=== PATIENT | female | born 1970 | race American Indian/Alaskan Native ===

== ENCOUNTER 2018-12-01 20:55 | Emergency (ER) | payer OTHER ==
[2018-12-01 21:14] VITALS: BP 124/84
--- NOTE | 2018-12-01 21:19 | Emergency Department Report ---
Chief Complaint: Skin Rash Stated Complaint: RASH,SWOLLEN FACE Time Seen by Provider: 12/01/18 21:12 - HPI History of Present Illness: This is a 48 y.o. F. that presents to the ER with rash to anterior torso and BUE X 2 days. Patient states rash started on BUE and she noticed itching to right anterior torso then bumps appeared. She don't recall being bitten by insect. She denies sore throat, tonsilar swelling, drooling, difficulty swallowing, or fever. - ROS Review of Systems: Skin: rash to BUE and anterior torso - Exam Vital Signs: Vital Signs 12/01/18 20:59 Temperature 98.0 F Pulse Rate 77 Respiratory 19 Rate Blood Pressure 124/84 O2 Sat by Pulse 98 Oximetry Physical Exam: GENERAL: The patient is well looking, in no acute distress. CHEST: Air entry is adequate bilaterally with no rhonchi, and crackles. HEART: Sounds 1 and 2 are heard and are normal. Regular rate and rhythm, no tachycardic, murmurs, gallops, or rubs. ABDOMEN: Soft and nontender. Bowel sounds are present and normal. There is no hepatosplenomegaly. SKIN: maculopapular rash to BUE and anterior torso, blanchable. No surrounding cellulitis and nontender EXTREMITIES: Without edema, cyanosis, or clubbing. MSE screening note: MSE screening note: Focused history and physical exam performed. Due to findings the following was ordered: ED Medical Decision Making - Medical Decision Making Patient was examined by me. Vitals are normal and patient is in no acute distr ess. No signs of angioedema of tongue or difficulty swallowing. Patient will be treated for contact dermatitis. Start zyrtec and medrol dose pack. Plan discussed with parent to discharge home and treat outpatient. She agrees with ER plan. Patient discharged home in stable condition. Follow up with PCP in 2-3 days. ED Disposition for MSE Clinical Impression: Pruritic rash Contact dermatitis Qualifiers: Contact dermatitis type: irritant Contact dermatitis trigger: unspecified trigger Qualified Code(s): L24.9 - Irritant contact dermatitis, unspecified cause Disposition: - TO HOME OR SELFCARE Is pt being admited?: No Does the pt Need Aspirin: No Condition: Stable Instructions: Contact Dermatitis (ED) Additional Instructions: Complete steroids as prescribed. Take zyrtec as prescribed daily to control itching. Return to the ER if symptoms are worsening. Prescriptions: methylPREDNISolone [Medrol 4MG DOSEPAK (21 tabs)] 4 mg PO DAILY #1 tab.ds.pk Cetirizine HCl [Zyrtec 10mg tab] 10 mg PO DAILY #30 tablet Referrals: [facility] [Outside] - 3-5 Days [facility] [Outside] - 3-5 Days [facility] [Outside] - 3-5 Days Time of Disposition: 21:42
== END 2018-12-01 22:10 | disposition home or self-care (01) ==
LOC: ED 20:55
DX: L24.9 Irritant contact dermatitis, unspecified cause (principal)
CPT/HCPCS: 99281

== ENCOUNTER 2018-12-13 05:06 | Emergency (ER) | payer SELFPAY ==
[2018-12-13] MEDS ORDERED: MORPHINE IV ONE (05:19)
[2018-12-13] MEDS ORDERED: ZOFRAN IV ONE (05:19)
[2018-12-13] MEDS ORDERED: ZOFRAN ONE (05:22)
[2018-12-13] MEDS ORDERED: MORPHINE ONE (05:23)
[2018-12-13] MEDS ORDERED: BOOSTRIX IM ONE (06:07)
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
[2018-12-13] MEDS ORDERED: THERMAZENE 50 GRAM TP ONE (06:21)
[2018-12-13] MEDS ORDERED: PERCOCET 5/325 PO ONE (06:21)
[2018-12-13 07:04] VITALS: BP 115/70
== END 2018-12-13 07:12 | disposition home or self-care (01) ==
LOC: ED 05:06
DX: T23.109A Burn of first degree of unspecified hand, unspecified site, initial encounter (principal); T23.26 Burn of second degree of back of hand; X12.XXXA Contact with other hot fluids, initial encounter; Y93.89 Activity, other specified; Y92.009 Unspecified place in unspecified non-institutional (private) residence as the place of occurrence of the external cause; Y99.8 Other external cause status
CPT/HCPCS: 90715; J2270; J2405; 90471; 96374; 96375

== ENCOUNTER 2018-12-24 15:47 | Emergency (ER) | payer OTHER ==
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
[2018-12-24 19:47] VITALS: BP 126/74
== END 2018-12-24 19:45 | disposition home or self-care (01) ==
LOC: ED 15:47
DX: M54.2 Cervicalgia (principal); Z86.73 Personal history of transient ischemic attack (TIA), and cerebral infarction without residual deficits; Z98.890 Other specified postprocedural states; Z79.899 Other long term (current) drug therapy; V40.5XXA Car driver injured in collision with pedestrian or animal in traffic accident, initial encounter; Y93.89 Activity, other specified; Y92.488 Other paved roadways as the place of occurrence of the external cause; Y99.8 Other external cause status
CPT/HCPCS: 72040; 99283

== ENCOUNTER 2019-02-17 13:02 | Emergency (ER) | payer SELFPAY ==
[2019-02-17 13:25] VITALS: BP 126/69
--- NOTE | 2019-02-17 13:25 | Event Note ---
ED Screening Note Date of service: 02/17/19 Time: 13:22 ED Screening Note: This is a 48 y.o. F. that presents to the ER with sore throat and congestion for 3 days. Patient states she visited family in [place] and returned home sick. She is taking Tylenol PM with minimal improvement of symptoms. This initial assessment/diagnostic orders/clinical plan/treatment(s) is/are subject to change based on patients health status, clinical progression and re- assessment by fellow clinical providers in the ED. Further treatment and workup at subsequent clinical providers discretion. Patient/guardian urged not to elope from the ED as their condition may be serious if not clinically assessed and managed. Initial orders include:
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
== END 2019-02-17 15:00 | disposition home or self-care (01) ==
LOC: ED 13:02
DX: J06.9 Acute upper respiratory infection, unspecified (principal)
CPT/HCPCS: 99282

== ENCOUNTER 2019-05-17 12:48 | Observation (INO) | payer OTHER ==
--- NOTE | 2019-05-17 12:56 | Event Note ---
ED Screening Note Date of service: 05/17/19 Time: 12:54 ED Screening Note: 49 y/o female comes to ER for having numbness and tingling to her left arm and fingers. Patient reports this has started 15 mins [employer]. Patient has a history of TIA and that a full stroke in 2017. This initial assessment/diagnostic orders/clinical plan/treatment(s) is/are subject to change based on patients health status, clinical progression and re- assessment by fellow clinical providers in the ED. Further treatment and workup at subsequent clinical providers discretion. Patient/guardian urged not to elope from the ED as their condition may be serious if not clinically assessed and managed. Initial orders include:
--- NOTE | 2019-05-17 13:02 | Consultation ---
History of Present Illness Consult date: 05/17/19 History of present illness: [facility] Consult Services Date of Service: 05/17/2019 12:57:15 Impression: RO Acute Ischemic Stroke Numbess/Parasthesias - r/o cardiac causes Comments: 1. Cardioembolic stroke 2. Small vessel disease/lacune 3. Thromboembolic, oxplte-ml-ifmuun mechanism 4. Hypercoagulable state-related infarct 5. Thrombotic mechanism, large artery disease 6. Transient ischemic attack Metrics: Last Known Well: 05/17/2019 12:30:00 [employer] Notification Time: 05/17/2019 12:56:33 Arrival Time: 05/17/2019 12:48:00 Stamp Time: 05/17/2019 12:57:15 Time First Login Attempt: 05/17/2019 13:01:15 Video Start Time: 05/17/2019 13:01:15 Symptoms: left arm face/arm parasthesia NIHSS Start Assessment Time: 05/17/2019 13:05:24 Patient is not a candidate for tPA. Patient was not deemed candidate for tPA thrombolytics because of patient declined IV TPA. Video End Time: 05/17/2019 13:18:48 CT head was reviewed. Advanced imaging was not obtained as the presentation was not suggestive of Large Vessel Occlusive Disease. ER Physician notified of the decision on thrombolytics management on 05/17/2019 13:17:00 Our recommendations are outlined below. Recommendations: Activate Stroke Protocol Admission/Order Set Stroke/Telemetry Floor Neuro Checks Bedside Swallow Eval DVT Prophylaxis IV Fluids, Normal Saline Head of Bed Below 30 Degrees Euglycemia and Avoid Hyperthermia (PRN Acetaminophen) ASA if no contraindication Recommended Scan: MRI Head Without Contrast MRA Head Without Contrast MRA Neck with and Without Contrast Lipid Panel to Be Obtained, if Not Done in the Last Three Months Therapies: Physical Therapy, Occupational Therapy, Speech Therapy Assessment When Applicable Dysphaghia Screen: Swallow Evaluation, Bedside NPO Until Swallow Evaluation DVT prophylaxis: Choice of Primary Team Disposition: Follow up with Teleneurology Follow up Sign Out: Discussed with Emergency Department Provider History of Present Illness: Patient is a 49 year old Female. Patient was brought by private transportation with symptoms of left arm face/arm parasthesia 49 y/o woman with h/o stroke, breast cancer (just diagnosed a week ago) who presents with left face/arm parasthesias. Emergent telestroke consult requested. CT head reviewed and case discussed with ED staff. Patient has a h/o of left carotid dissection. I discussed the risk, benefits and alternatives IV TPA and the patient declined IV TPA since her symptoms are nondebilitating. CT head was reviewed. Examination: 1A: Level of Consciousness - Alert; keenly responsive + 0 1B: Ask Month and Age - Both Questions Right + 0 1C: Blink Eyes & Squeeze Hands - Performs Both Tasks + 0 2: Test Horizontal Extraocular Movements - Normal + 0 3: Test Visual Covarrubias - No Visual Loss + 0 4: Test Facial Palsy (Use Grimace if Obtunded) - Normal symmetry + 0 5A: Test Left Arm Motor Drift - No Drift for 10 Seconds + 0 5B: Test Right Arm Motor Drift - No Drift for 10 Seconds + 0 6A: Test Left Leg Motor Drift - No Drift for 5 Seconds + 0 6B: Test Right Leg Motor Drift - No Drift for 5 Seconds + 0 7: Test Limb Ataxia (FNF/Heel-Osman) - No Ataxia + 0 8: Test Sensation - Mild-Moderate Loss: Less Sharp/More Dull + 1 9: Test Language/Aphasia - Normal; No aphasia + 0 10: Test Dysarthria - Normal + 0 11: Test Extinction/Inattention - No abnormality + 0 NIHSS Score: 1 Patient was informed the Neurology Consult would happen via TeleHealth consult by way of interactive audio and video telecommunications and consented to receiving care in this manner. Due to the immediate potential for life-threatening deterioration due to unde rlying acute neurologic illness, I spent 18 minutes providing critical care. This time includes time for face to face visit via telemedicine, review of medical records, imaging studies and discussion of findings with providers, the patient and/or family. Dr Tarik Gonzalez [employer] Medications and Allergies Allergies Allergy/AdvReac Type Severity Reaction Status Date / Time No Known Allergies Allergy Verified 02/17/19 13:29 Home Medications Medication Instructions Recorded Confirmed Last Taken Type Ondansetron [Zofran Odt] 4 mg PO Q6H PRN #10 tab.rapdis 12/13/18 Unknown Rx Silver Sulfadiazine [Silvadene] 20 gm TP BID #1 cream..g. 12/13/18 Unknown Rx oxyCODONE /ACETAMINOPHEN [Percocet 1 tab PO Q6HR PRN #12 tablet 12/13/18 Unknown Rx 5/325] Cyclobenzaprine [Flexeril] 10 mg PO QHS PRN #10 tablet 12/24/18 Unknown Rx Naproxen [EC-Naproxen] 500 mg PO BID PRN #20 tablet.dr 12/24/18 Unknown Rx Benzonatate [Tessalon Perles] 100 mg PO Q8HR PRN #30 capsule 02/17/19 Unknown Rx Cetirizine HCl [Zyrtec 10mg tab] 10 mg PO DAILY #30 tablet 02/17/19 Unknown Rx Fluticasone [Flonase] 1 spray NS QDAY #1 bottle 02/17/19 Unknown Rx methylPREDNISolone [Medrol 4MG 4 mg PO DAILY #1 tab.ds.pk 02/17/19 Unknown Rx DOSEPAK (21 tabs)] Physical Examination - Vital Signs Vital Signs: Vital Signs Temp Pulse Resp BP Pulse Ox 98.3 F 68 16 136/83 99 05/17/19 12:56 05/17/19 12:56 05/17/19 12:56 05/17/19 12:56 05/17/19 12:56
--- NOTE | 2019-05-17 13:19 | Cat Scan Report ---
CT head/brain wo con INDICATION: neuro deficits <6hrs or sx present upon awakening. TECHNIQUE: Routine CT head without contrast. All CT scans at this location are performed using CT dos e reduction for ALARA by means of automated exposure control. COMPARISON: None. FINDINGS: BRAIN / INTRACRANIAL CONTENTS: No acute hemorrhage, mass effect, midline shift, or hydrocephalus. No appreciable acute large territorial or lacunar infarct. No chronic infarct or focal atrophy. Normal b rain volume and ventricular/sulcal size for age. ORBITS: No significant abnormality of visualized orbits. SINUSES / MASTOIDS: No significant abnormality of visualized sinuses and mastoid air cells. ADDITIONAL FINDINGS: None. IMPRESSION: 1. No acute intracranial abnormality. Findings discussed with Dr. Castañeda at 12:15 PM central time on 05/17/2019. Signer Name: Kishor Tavarez MD Signed: 05/17/2019 1:15 PM Workstation Name: [id number]
--- NOTE | 2019-05-17 13:30 | Emergency Department Report ---
ED General Adult HPI - General Chief complaint: Neuro Symptoms/Deficit Stated complaint: LEFT ARM TINGLING Time Seen by Provider: 05/17/19 12:54 Source: patient, RN notes reviewed Mode of arrival: Ambulatory Limitations: No Limitations - History of Present Illness Initial comments: The patient is a 49-year-old female. The patient is not known to this provider previously. Her past medical history includes possible carotid dissection, left side, 2017, and reported newly diagnosed breast cancer. Presents to the ER as a possible code stroke. Symptoms include left forearm numbness, starting from the distal left upper extremity fingertips, and then radiating up to the elbow. There is no weakness. Symptoms started between 12:30 PM, and 12:41 PM. Also endorses nontraumatic left-sided facial dysesthesias. Patient also endorses chronic swallowing and chest discomfort. Symptoms constant, do not radiate anywhere, and did not have exacerbating or relieving factors. The patient denies recent travel, surgeries, oral contraceptive use, and denies posterior leg pain and swelling. -: Gradual Location: face, left, upper extremity Consistency: constant Improves with: none Worsens with: none - Related Data Previous Rx's Medication Instructions Recorded Last Taken Type Ondansetron [Zofran Odt] 4 mg PO Q6H PRN #10 tab.rapdis 12/13/18 Unknown Rx Silver Sulfadiazine [Silvadene] 20 gm TP BID #1 cream..g. 12/13/18 Unknown Rx oxyCODONE /ACETAMINOPHEN [Percocet 1 tab PO Q6HR PRN #12 tablet 12/13/18 Unknown Rx 5/325] Cyclobenzaprine [Flexeril] 10 mg PO QHS PRN #10 tablet 12/24/18 Unknown Rx Naproxen [EC-Naproxen] 500 mg PO BID PRN #20 tablet.dr 12/24/18 Unknown Rx Benzonatate [Tessalon Perles] 100 mg PO Q8HR PRN #30 capsule 02/17/19 Unknown Rx Cetirizine HCl [Zyrtec 10mg tab] 10 mg PO DAILY #30 tablet 02/17/19 Unknown Rx Fluticasone [Flonase] 1 spray NS QDAY #1 bottle 02/17/19 Unknown Rx methylPREDNISolone [Medrol 4MG 4 mg PO DAILY #1 tab.ds.pk 02/17/19 Unknown Rx DOSEPAK (21 tabs)] Allergies Allergy/AdvReac Type Severity Reaction Status Date / Time No Known Allergies Allergy Verified 02/17/19 13:29 ED Review of Systems ROS: Stated complaint: LEFT ARM TINGLING Other details as noted in HPI Constitutional: denies: fever Eyes: denies: eye discharge ENT: denies: congestion Respiratory: denies: wheezing Cardiovascular: denies: syncope Gastrointestinal: denies: vomiting Neurological: numbness ED Past Medical Hx - Past Medical History Hx CVA: Yes (2017) - Surgical History Additional Surgical History: tuble - Social History Smoking Status: Never Smoker Substance Use Type: None - Medications Home Medications: Home Medications Medication Instructions Recorded Confirmed Last Taken Type Ondansetron [Zofran Odt] 4 mg PO Q6H PRN #10 tab.rapdis 12/13/18 Unknown Rx Silver Sulfadiazine [Silvadene] 20 gm TP BID #1 cream..g. 12/13/18 Unknown Rx oxyCODONE /ACETAMINOPHEN [Percocet 1 tab PO Q6HR PRN #12 tablet 12/13/18 Unknown Rx 5/325] Cyclobenzaprine [Flexeril] 10 mg PO QHS PRN #10 tablet 12/24/18 Unknown Rx Naproxen [EC-Naproxen] 500 mg PO BID PRN #20 tablet.dr 12/24/18 Unknown Rx Benzonatate [Tessalon Perles] 100 mg PO Q8HR PRN #30 capsule 02/17/19 Unknown Rx Cetirizine HCl [Zyrtec 10mg tab] 10 mg PO DAILY #30 tablet 02/17/19 Unknown Rx Fluticasone [Flonase] 1 spray NS QDAY #1 bottle 02/17/19 Unknown Rx methylPREDNISolone [Medrol 4MG 4 mg PO DAILY #1 tab.ds.pk 02/17/19 Unknown Rx DOSEPAK (21 tabs)] ED Physical Exam - General Limitations: No Limitations General appearance: alert, in no apparent distress - Head Head exam: Present: atraumatic, normocephalic - Eye Eye exam: Present: normal appearance, PERRL, EOMI, other (visual acuity intact to finger counting in color perception at close distance). Absent: nystagmus - ENT ENT exam: Present: normal exam, normal orophraynx, mucous membranes moist, normal external ear exam - Neck Neck exam: Present: normal inspection, full ROM. Absent: tenderness, meningismus - Respiratory Respiratory exam: Present: normal lung sounds bilaterally. Absent: respiratory distress - Cardiovascular Cardiovascular Exam: Present: regular rate, normal rhythm, normal heart sounds. Absent: bradycardia, tachycardia, irregular rhythm, systolic murmur, diastolic murmur, rubs, gallop - GI/Abdominal GI/Abdominal exam: Present: soft. Absent: distended, tenderness, guarding, rebound, rigid, pulsatile mass - Extremities Exam Extremities exam: Present: normal inspection, full ROM, other (2+ pulses noted in the bilateral upper and lower extremities. There is no palpable cord. negative Homans sign. Muscular compartments are soft. The pelvis is stable.). Absent: pedal edema, joint swelling, calf tenderness - Back Exam Back exam: Present: normal inspection, full ROM. Absent: tenderness, CVA tenderness (R), CVA tenderness (L), paraspinal tenderness, vertebral tenderness - Neurological Exam Neurological exam: Present: alert, oriented X3, other (there is no facial droop. The tongue is midline. Extraocular movements are intact bilaterally. There is 5 out of 5 strength in bilateral upper and lower extremities. Sensation is intact to light touch bilateral upper and lower extremities. There is no past- pointing. There is no pronator drift. There is normal [id number]. There is a normal gait.). Absent: motor sensory deficit (sensation is intact to light touch in the bilateral upper and lower extremities. However, patient endorses that left distal forearm feels somewhat different from her right upper extremity.) - Psychiatric Psychiatric exam: Present: anxious - Skin Skin exam: Present: warm, dry, intact, normal color. Absent: rash ED Course Vital Signs 05/17/19 05/17/19 12:56 13:24 Temperature 98.3 F 98.2 F Pulse Rate 68 68 Respiratory 16 14 Rate Blood Pressure 136/83 Blood Pressure 125/82 [Right] O2 Sat by Pulse 99 100 Oximetry - Reevaluation(s) Reevaluation #1: 05/17/19 14:33 Differential diagnosis, including but not limited to: Peripheral neuropathy, TIA, stroke, multiple sclerosis Assessment and plan: 49-year-old female presenting with subjective left upper extremity numbness, elbow distal, subjective dysesthesia and left-sided V2 distribution, no obvious demonstrable motor deficits, declines CPA, which I agree with. Patient specifically indicated she did not want TPA as she is concerned about the risks of bleeding, and . She does not appear to have disabling deficits at this time. She is resting comfortable, and in no acute distress. She was seen in conjunction with consultative stroke neurology, who also made similar recommendations. Hospital physician will be paged to arrange admission. ED Medical Decision Making - Lab Data Result diagrams: 05/17/19 13:17 05/17/19 13:17 Vital Signs 05/17/19 05/17/19 12:56 13:24 Temperature 98.3 F 98.2 F Pulse Rate 68 68 Respiratory 16 14 Rate Blood Pressure 136/83 Blood Pressure 125/82 [Right] O2 Sat by Pulse 99 100 Oximetry Lab Results 05/17/19 05/17/19 05/17/19 Range/Units 13:04 13:17 13:17 WBC 7.6 (4.5-11.0) K/mm3 RBC 4.46 (3.65-5.03) M/mm3 Hgb 14.0 (10.1-14.3) gm/dl Hct 41.2 (30.3-42.9) % MCV 92 (79-97) fl MCH 32 (28-32) pg MCHC 34 (30-34) % RDW 13.3 (13.2-15.2) % Plt Count 275 (140-440) K/mm3 Lymph % (Auto) 31.7 (13.4-35.0) % Beaver % (Auto) 5.5 (0.0-7.3) % Eos % (Auto) 2.1 (0.0-4.3) % Baso % (Auto) 1.0 (0.0-1.8) % Lymph # 2.4 (1.2-5.4) K/mm3 Beaver # 0.4 (0.0-0.8) K/mm3 Eos # 0.2 (0.0-0.4) K/mm3 Baso # 0.1 (0.0-0.1) K/mm3 Seg Neutrophils % 59.7 (40.0-70.0) % Seg Neutrophils # 4.6 (1.8-7.7) K/mm3 PT 12.2 (12.2-14.9) Sec. INR 0.90 (0.87-1.13) APTT 25.8 (24.2-36.6) Sec. Thrombin Time 16.7 (15.1-19.6) Sec. Sodium (137-145) mmol/L Potassium (3.6-5.0) mmol/L Chloride (98-107) mmol/L Carbon Dioxide (22-30) mmol/L Anion Gap mmol/L BUN (7-17) mg/dL Creatinine (0.7-1.2) mg/dL Estimated GFR ml/min BUN/Creatinine Ratio % Glucose (65-100) mg/dL POC Glucose 93 (70-105) Calcium (8.4-10.2) mg/dL Troponin T (0.00-0.029) ng/mL 05/17/19 Range/Units 13:17 WBC (4.5-11.0) K/mm3 RBC (3.65-5.03) M/mm3 Hgb (10.1-14.3) gm/dl Hct (30.3-42.9) % MCV (79-97) fl MCH (28-32) pg MCHC (30-34) % RDW (13.2-15.2) % Plt Count (140-440) K/mm3 Lymph % (Auto) (13.4-35.0) % Beaver % (Auto) (0.0-7.3) % Eos % (Auto) (0.0-4.3) % Baso % (Auto) (0.0-1.8) % Lymph # (1.2-5.4) K/mm3 Beaver # (0.0-0.8) K/mm3 Eos # (0.0-0.4) K/mm3 Baso # (0.0-0.1) K/mm3 Seg Neutrophils % (40.0-70.0) % Seg Neutrophils # (1.8-7.7) K/mm3 PT (12.2-14.9) Sec. INR (0.87-1.13) APTT (24.2-36.6) Sec. Thrombin Time (15.1-19.6) Sec. Sodium 141 (137-145) mmol/L Potassium 4.4 (3.6-5.0) mmol/L Chloride 106.5 (98-107) mmol/L Carbon Dioxide 25 (22-30) mmol/L Anion Gap 14 mmol/L BUN 9 (7-17) mg/dL Creatinine 0.8 (0.7-1.2) mg/dL Estimated GFR > 60 ml/min BUN/Creatinine Ratio 11 % Glucose 93 (65-100) mg/dL POC Glucose (70-105) Calcium 9.2 (8.4-10.2) mg/dL Troponin T < 0.010 (0.00-0.029) ng/mL - EKG Data -: EKG Interpreted by Me EKG shows normal: sinus rhythm Rate: normal - EKG Data When compared to previous EKG there are: previous EKG unavailable 05/17/19 14:33 There is no prior EKG available for comparison. The EKG shows a sinus bradycardia, within normal axis, the QTC is within normal limits, the EKG is unremarkable, it is not consistent with ST elevation myocardial infarction. - Radiology Data Radiology results: pending, report reviewed, image reviewed X-ray the chest is negative for acute disease. Noncontrast CT scan of the brain is negative for acute disease. Critical care attestation.: If time is entered above; I have spent that time in minutes in the direct care of this critically ill patient, excluding procedure time. ED Disposition Clinical Impression: Left arm numbness, Left facial numbness Disposition: OP ADMIT IP TO THIS HOSP Is pt being admited?: Yes Does the pt Need Aspirin: Yes Condition: Stable
[2019-05-17 13:36] LABS: Basophils # (Auto) 0.1 K/mm3 (0.0-0.1); Eosinophils # (Auto) 0.2 K/mm3 (0.0-0.4); Eosinophils % (Auto) 2.1 % (0.0-4.3); Hematocrit 41.2 % (30.3-42.9); Lymphocytes # (Auto) 2.4 K/mm3 (1.2-5.4); Lymphocytes % (Auto) 31.7 % (13.4-35.0); Mean Corpuscular HGB Conc 34 % (30-34); Mean Corpuscular Volume 92 fl (79-97); Monocytes # (Auto) 0.4 K/mm3 (0.0-0.8); Monocytes % (Auto) 5.5 % (0.0-7.3); Platelet Count 275 K/mm3 (140-440); Red Blood Count 4.46 M/mm3 (3.65-5.03); Red Cell Distribution Width 13.3 % (13.2-15.2)
[2019-05-17 13:49] LABS: INR 0.9 (0.87-1.13)
[2019-05-17 13:50] LABS: BUN/Creatinine Ratio 11; Blood Urea Nitrogen 9 mg/dL (7-17); Calcium 9.2 mg/dL (8.4-10.2); Hemolysis Index 11
[2019-05-17 14:06] LABS: Partial Thromboplastin Time 25.8 Sec. (24.2-36.6); Thrombin Time 16.7 Sec. (15.1-19.6)
--- NOTE | 2019-05-17 14:14 | XRay Report ---
CHEST 1 VIEW INDICATION: Chest pain. COMPARISON: None FINDINGS: Support devices: None. Heart: Within normal limits. Lungs/Pleura: No acute air space or interstitial disease. Additional findings: None. IMPRESSION: No acute findings. Signer Name: Pritesh Beck Jr, MD Signed: 05/17/2019 2:09 PM Workstation Name: [id number]
[2019-05-17] MEDS ORDERED: ASPIRIN 81 MG TAB CHEW PO ONE (14:35)
[2019-05-17] MEDS ORDERED: ONDANSETRON 4 MG/2 ML INJ IV PRN (14:56)
[2019-05-17] MEDS ORDERED: MAGNESIUM HYDROXIDE (MOM) ORAL LIQD UDC PO PRN (14:56)
[2019-05-17] MEDS ORDERED: ACETAMINOPHEN 325 MG TAB PO PRN (14:56)
[2019-05-17] MEDS ORDERED: PROMETHAZINE 25 MG RECT SUPP PR PRN (14:56)
[2019-05-17] MEDS ORDERED: METOCLOPRAMIDE 10 MG TAB PO PRN (14:56)
--- NOTE | 2019-05-17 14:56 | History and Physical Report ---
History of Present Illness Chief complaint: I felt weak History of present illness: 49 YO Female with CVA, Traumatic carotid dissection, BrCa presents to ED for evaluation. Pt states that she experienced acute onset Left arm numbness and weakness, as well as Left sided facial droop and weakness that began around 1230hrs. Pt transported to [facility] via private vehicle. Pt seen and evaluated in ED and a Code stroke was called. Teleneurology consulted. Pt denies fever, chills, CP, Palpitations, NVD, Trauma, BRBPR, Productive cough, Skin rash, or recent ill contacts. Pt placed in observation status and admitted to medical floor. No prior admission for review. All listed medication reconciled at time of admission. Neurology consulted in ED. Past History Past Medical History: stroke Past Surgical History: Other (Tubal ligation) Social history: single Family history: hypertension Medications and Allergies Allergies Allergy/AdvReac Type Severity Reaction Status Date / Time No Known Allergies Allergy Verified 02/17/19 13:29 Home Medications Medication Instructions Recorded Confirmed Last Taken Type Ondansetron [Zofran Odt] 4 mg PO Q6H PRN #10 tab.rapdis 12/13/18 Unknown Rx Silver Sulfadiazine [Silvadene] 20 gm TP BID #1 cream..g. 12/13/18 Unknown Rx oxyCODONE /ACETAMINOPHEN [Percocet 1 tab PO Q6HR PRN #12 tablet 12/13/18 Unknown Rx 5/325] Cyclobenzaprine [Flexeril] 10 mg PO QHS PRN #10 tablet 12/24/18 Unknown Rx Naproxen [EC-Naproxen] 500 mg PO BID PRN #20 tablet. 12/24/18 Unknown Rx Benzonatate [Tessalon Perles] 100 mg PO Q8HR PRN #30 capsule 02/17/19 Unknown Rx Cetirizine HCl [Zyrtec 10mg tab] 10 mg PO DAILY #30 tablet 02/17/19 Unknown Rx Fluticasone [Flonase] 1 spray NS QDAY #1 bottle 02/17/19 Unknown Rx methylPREDNISolone [Medrol 4MG 4 mg PO DAILY #1 tab.ds.pk 02/17/19 Unknown Rx DOSEPAK (21 tabs)] Review of Systems Constitutional: no weight loss, no weight gain, no fever, no sweats Ears, nose, mouth and throat: no ear pain, no ear discharge, no tinnitis, no decreased hearing, no nasal congestion, no nasal discharge Breasts: no change in shape, no swelling Cardiovascular: no chest pain, no palpitations, no edema, no syncope, no li ghtheadedness Respiratory: no cough, no excessive sputum, no hemoptysis, no shortness of breath Gastrointestinal: no abdominal pain, no nausea, no diarrhea, no change in bowel habits, no hematemesis Genitourinary Female: no pelvic pain, no flank pain, no menorrhagia, no dysuria, no urinary frequency, no urgency Musculoskeletal: no neck stiffness, no neck pain, no shooting leg pain, no leg numbness/tingling Integumentary: no rash, no pruritis, no sores, no wounds Neurological: transient paralysis, weakness, numbness, no lack of coordination, no vertigo, no headaches, no change in speech, no change in mentation, no confusion Psychiatric: no anxiety, no memory loss, no change in sleep habits, no sleep disturbances, no insomnia, no hypersomnia, no suicidal ideation Endocrine: no heat intolerance, no excessive thirst, no polydipsia, no polyuria, no nocturia, no flushing Hematologic/Lymphatic: no easy bruising, no easy bleeding, no lymphadenopathy, no lymphedema Allergic/Immunologic: no urticaria, no allergic rhinitis, no persistent infecti ons, no anaphylaxis, no angioedema Exam - Constitutional Vitals: Temp Pulse Resp BP Pulse Ox 98.2 F 68 14 125/82 100 05/17/19 13:24 05/17/19 13:24 05/17/19 13:24 05/17/19 13:24 05/17/19 13:24 General appearance: Present: mild distress - EENT Eyes: Present: PERRL ENT: hearing intact, clear oral mucosa - Neck Neck: Present: supple, normal ROM - Respiratory Respiratory effort: normal Respiratory: bilateral: CTA - Cardiovascular Heart Sounds: Present: S1 & S2. Absent: rub, click - Extremities Extremities: pulses symmetrical, No edema Peripheral Pulses: within normal limits - Abdominal General gastrointestinal: Present: soft, non-tender, non-distended, normal bowel sounds Female genitourinary: Present: normal - Integumentary Integumentary: Present: clear, warm, dry - Musculoskeletal Musculoskeletal: gait normal, strength equal bilaterally - Psychiatric Psychiatric: appropriate mood/affect, intact judgment & insight - Neurologic Neurologic: CNII-XII intact, moves all extremities Results - Labs CBC & Chem 7: 05/17/19 13:17 05/17/19 13:17 Assessment and Plan - Patient Problems (1) CVA (cerebral vascular accident) Current Visit: Yes Status: Acute Qualifiers: Laterality of affected vessel: unspecified Plan to address problem: Stroke Protocol: CT head, neuro check, carotid doppler, PT/OT/Speech Therapy, echo, antiplatelet therapy (2) Breast cancer Current Visit: Yes Status: Acute Qualifiers: Estrogen receptor status: unspecified Plan to address problem: Outpatient Oncology F/U care. (3) DVT prophylaxis Current Visit: Yes Status: Acute Plan to address problem: SCD to BLE while in bed, Pt ambulatory.
[2019-05-17] MEDS ORDERED: ASPIRIN 81 MG TAB CHEW ONE (15:36)
--- NOTE | 2019-05-17 17:06 | Vascular Lab Report ---
"DUPLEX DOPPLER ULTRASOUND CAROTID, BILATERAL INDICATION: stroke. FINDINGS: RIGHT CAROTID: Mild plaque Right CCA velocity: 122 cm/sec. Right ICA peak systolic velocity: 91 cm/sec. ICA/CCA PSV Ratio: 0.75. Right Vertebral Artery: Antegrade flow LEFT CAROTID: Mild plaque Left CCA velocity: 118 cm/sec. Left ICA peak systolic velocity: 89 cm/sec. ICA/CCA PSV Ratio: 0.75. Left Vertebral Artery: Antegrade flow. IMPRESSION: 1. Right Internal Carotid Artery: Less than 50% diameter stenosis. 2. Left Internal Carotid Artery: Less than 50% diameter stenosis. Velocity criteria are extrapolated from diameter data as defined by the Society of Radiologists in Ul trasound Consensus Conference, Radiology 2003; 229;340-346. Degree of Stenosis (%) || ICA PSV (cm/sec) || Plaque estimate (%) || ICA/CCA PSV Ratio Normal <125 None <2.0 <50 <125 <50 <2.0 50-69 125-230 50 2.0-4.0 70 but less than 100 >230 50 >4.0 Near occlusion High, low, or none visible variable Total occlusion None visible; no lumen N/A Signer Name: Tony Rodrigues MD Signed: 05/17/2019 5:02 PM Workstation Name: [id number]
[2019-05-17 17:20] VITALS: BP 140/77
[2019-05-18] MEDS ORDERED: ASPIRIN 325 MG TAB PO SCH (10:00)
== END 2019-05-17 17:40 | disposition left against medical advice (07) ==
LOC: ED 12:48 → 3A 15:04
PROVIDERS: ADMIT Internal Medicine; ATTEND Internal Medicine
DX: I63.9 Cerebral infarction, unspecified (principal); C50.919 Malignant neoplasm of unspecified site of unspecified female breast; R20.0 Anesthesia of skin; Z98.51 Tubal ligation status
CPT/HCPCS: 36415; 70450; 71045; 80048; 82962; 84484; 85025; 85610; 85670; 85730; 93005; 93010; 93306; 93880; 99284; G0378